=== PATIENT | male | born 1975 | race Caucasian/White ===

== ENCOUNTER 2020-02-11 08:25 | Emergency (ER) | payer OTHER ==
[2020-02-11 08:46] VITALS: BP 149/97
--- NOTE | 2020-02-11 10:41 | ER Document Report ---
ED Medical Screen (RME) - General Chief Complaint: Chest Pain Stated Complaint: CHEST PAIN,ARM NUMBNESS Time Seen by Provider: 02/11/20 10:31 - HPI Notes: 02/11/20 10:40 44-year-old male to the emergency department with complaints of 1 week of morning time chest pain is associated with bilateral arm numbness and tingling and diaphoresis. Patient states that the pain does not radiate through to his back or up into his neck. He states he feels a whooshing sensation which he attributes to having perhaps an elevated blood pressure. He states that it happened again this morning took his blood pressure twice. the first blood pressure was 155/100 and the second was 160 over 90s. He does not have a known history of high blood pressure. He states that he has been told that he is prediabetic but he takes no medicine for it. He denies any history of hyperlipidemia. He states that his family history is significant for several members who have had heart attacks around the age of 60. He has never had a heart attack himself. He does not smoke. He does not use any drugs. He states that he does not have worsening chest pain and diaphoresis when he exerts himself. This morning he took 2 baby aspirin prior to arrival. I performed a brief medical screening exam on the patient determined that the patient needs further evaluation and management by main side provider. I have placed initial orders to help expedite care. Physical Exam - Vital signs Vitals: Temp Pulse Resp BP Pulse Ox 98.3 F 94 17 149/97 H 97 02/11/20 08:37 02/11/20 08:37 02/11/20 08:37 02/11/20 08:37 02/11/20 08:37 Course - Vital Signs Vital signs: Temp Pulse Resp BP Pulse Ox 98.3 F 94 17 149/97 H 97 02/11/20 08:37 02/11/20 08:37 02/11/20 08:37 02/11/20 08:37 02/11/20 08:37
--- NOTE | 2020-02-11 10:56 | ER Document Report ---
ED General - General Chief Complaint: Chest Pain Stated Complaint: CHEST PAIN,ARM NUMBNESS Time Seen by Provider: 02/11/20 10:31 Notes: 44-year-old male with a history of possible hypertension presents with chest pressure. Is been going on for 3 days is worse when he wakes up in the morning and then goes for about an hour sometimes recurs and gets better throughout the day. When it happens he short of breath and feels palpitations or heaviness in his neck which he attributes to high blood pressure. He checked his blood pressure 3 times today and it was from the 140s to the 160s. He currently is chest pain and chest pressurefree. His pain this morning started at 430 and was constant until just before arriving in the ER. He has not seen a doctor in a few years since moving back from [place]. He took Felix aspirin this morning. He has no leg swelling does not smoke and has no other risk factors for CAD. - Related Data Allergies/Adverse Reactions: anthrax vaccine Allergy (Verified 02/11/20 10:43) Past Medical History - General Information source: Patient - Social History Smoking Status: Never Smoker Chew tobacco use (# tins/day): No Frequency of alcohol use: Occasional Drug Abuse: None Family History: None Patient has homicidal ideation: No Review of Systems - Review of Systems Notes: REVIEW OF SYSTEMS GEN: Denies fever, chills, weight loss ENT: Denies sore throat, nasal discharge, ear pain EYES: Denies blurry vision, eye pain, discharge CV: Chest pressure palpitations mike RESP: Denies cough, shortness of breath, wheezing GI: Denies abdominal pain, nausea, vomiting, diarrhea MSK: Denies joint pain/swelling, edema, SKIN: Denies rash, skin lesions LYMPH: Denies swollen glands/lymph nodes NEURO: Denies headache, focal weakness or numbness, dizziness PSYCH: Denies depression, suicidal or homicidal ideation PHYSICAL EXAMINATION General: No acute distress, well-nourished Head: Atraumatic, normocephalic ENT: Mouth normal, oropharynx moist, no exudates or tonsillar enlargement Eyes: Conjunctiva normal, pupils equal, lids normal Neck: No JVD, supple, no guarding CVS: Normal rate, regular rhythm, no murmurs Resp: No resp distress, equal and normal breath sounds bilaterally GI: Nondistended, soft, no tenderness to palpation, no rebound or guarding Ext: No deformities, no edema, normal range of motion in upper and lower ext Back: No CVA or midline TTP Skin: No rash, warm Lymphatic: No lymphadeopathy noted Neuro: Awake, alert. Face symmetric. GCS 15. Physical Exam - Vital signs Vitals: Temp Pulse Resp BP Pulse Ox 98.3 F 94 17 149/97 H 97 02/11/20 08:37 02/11/20 08:37 02/11/20 08:37 02/11/20 08:37 02/11/20 08:37 Course - Re-evaluation Re-evalutation: 02/11/20 13:48 Typical chest pain/pressure with possible new onset hypertension Normotensive in the ED with reproducible chest pain EKG normal labs normal Trope negative after several hours/days of pain Heart score is 1 Patient is stable for outpatient follow-up and establishment of primary care Consideration was given to PE dissection or other acute causes of chest pain, based on history physical exam and work-up do not think further work-up vacated at this time I have discussed with the patient there likely diagnosis, aftercare plan, follow-up plans and my usual and customary return precautions. They verbalized understanding of this. - Vital Signs Vital signs: Temp Pulse Resp BP Pulse Ox 98.3 F 94 17 149/97 H 97 02/11/20 08:37 02/11/20 08:37 02/11/20 08:37 02/11/20 08:37 02/11/20 08:37 - Laboratory Result Diagrams: 02/11/20 10:46 02/11/20 10:46 Laboratory results interpreted by me: 02/11/20 10:46 MCV 79 L RDW 14.5 H - Diagnostic Test Radiology reviewed: Image reviewed, Reports reviewed - EKG Interpretation by Me EKG shows normal: Sinus rhythm Rate: Normal Rhythm: NSR When compared to previous EKG there are: Previous EKG unavailable - No ST depression or elevation No T wave inversion or changes Normal intervals Discharge - Discharge Clinical Impression: Hypertension with goal of symptom management only Chest pain, unspecified Qualifiers: Chest pain type: unspecified Qualified Code(s): R07.9 - Chest pain, unspecified Condition: Good Disposition: HOME, SELF-CARE Instructions: Chest Pain of Unclear Cause ([facility]) Additional Instructions: Please work with your insurance to find a local primary care provider and follow-up within 1 week for blood pressure check and further testing of your glucose and cholesterol. Forms: Elevated Blood Pressure
[2020-02-11 11:14] LABS: ABSOLUTE BASOPHILS # (AUTO) 0.1 10^3/uL (0.0-0.2); ABSOLUTE EOSINOPHILS # (AUTO) 0.4 10^3/uL (0.0-0.6); ABSOLUTE LYMPHOCYTES (AUTO) 1.9 10^3/uL (0.5-4.7); ABSOLUTE MONOCYTES (AUTO) 0.6 10^3/uL (0.1-1.4); ABSOLUTE NEUT (AUTO) 4.8 10^3/uL (1.7-8.2); EOSINOPHILS % (AUTO) 5.3 % (0-6); HEMATOCRIT 42.5 % (37.9-51.0); HEMOGLOBIN 14.6 g/dL (13.5-17.0); LYMPHOCYTES % (AUTO) 23.9 % (13-45); MEAN CORPUSCULAR HEMOGLOBIN 27.1 pg (27.0-33.4); MEAN CORPUSCULAR HGB CONC 34.3 g/dL (32.0-36.0); MEAN CORPUSCULAR VOLUME 79 fl (80-97); MONOCYTES % (AUTO) 7.8 % (3-13); PLATELET COUNT 274 10^3/uL (150-450); RED BLOOD COUNT 5.39 10^6/uL (4.35-5.55); RED CELL DISTRIBUTION WIDTH 14.5 % (11.5-14.0); TOTAL CELLS COUNTED % (AUTO) 100 %; WHITE BLOOD COUNT 7.7 10^3/uL (4.0-10.5)
[2020-02-11 11:16] LABS: INTERNATIONAL RATION (INR) 0.91; PARTIAL THROMBOPLASTIN TIME 27.2 SEC (23.5-35.8); PROTHROMBIN TIME 12.5 SEC (11.4-15.4)
[2020-02-11 11:27] LABS: ALBUMIN 4.6 g/dL (3.5-5.0); ALKALINE PHOSPHATASE 110 U/L (38-126); ANION GAP 10 (5-19); ASPARTATE AMINO TRANSFERASE 26 U/L (17-59); BILIRUBIN,DIRECT 0.1 mg/dL (0.0-0.4); BILIRUBIN,TOTAL 0.4 mg/dL (0.2-1.3); BLOOD UREA NITROGEN 15 mg/dL (7-20); CALCIUM 9.8 mg/dL (8.4-10.2); CARBON DIOXIDE 27 mmol/L (22-30); CHLORIDE 104 mmol/L (98-107); GLUCOSE 90 mg/dL (75-110); POTASSIUM 4.6 mmol/L (3.6-5.0); TOTAL PROTEIN 8.1 g/dL (6.3-8.2)
--- NOTE | 2020-02-11 11:36 | RADIOLOGY REPORT (SQ) ---
EXAM DESCRIPTION: CHEST 2 VIEWS IMAGES COMPLETED DATE/TIME: 02/11/2020 11:26 am REASON FOR STUDY: chest pain, diaphoresis COMPARISON: None. EXAM PARAMETERS: NUMBER OF VIEWS: two views TECHNIQUE: Digital Frontal and Lateral radiographic views of the chest acquired. RADIATION DOSE: NA LIMITATIONS: none FINDINGS: LUNGS AND PLEURA: No opacities, masses or pneumothorax. No pleural effusion. MEDIASTINUM AND HILAR STRUCTURES: No masses or contour abnormalities. HEART AND VASCULAR STRUCTURES: Heart normal size. No evidence for failure. BONES: No acute findings. HARDWARE: None in the chest. OTHER: No other significant finding. IMPRESSION: NO ACUTE RADIOGRAPHIC FINDING IN THE CHEST. TECHNICAL DOCUMENTATION: JOB ID: [id number] 2010 [employer]- All Rights Reserved Reading location - IP/workstation name: [email or web address]
--- NOTE | 2020-02-11 12:50 | EKG REPORT ---
SEVERITY:- NORMAL ECG - SINUS RHYTHM : Confirmed by: Nolberto Doyle MD 11-Feb-2020 12:49:35
== END 2020-02-11 12:35 | disposition home or self-care (01) ==
LOC: ER 08:25
DX: I10 Essential (primary) hypertension (principal); R07.9 Chest pain, unspecified; R20.0 Anesthesia of skin; R61 Generalized hyperhidrosis
CPT/HCPCS: 36415; 71046; 80053; 84484; 85025; 85610; 85730; 93005; 93010; 99285